=== PATIENT | male | born 1960 | race Two or more races ===

== ENCOUNTER → 2017-01-14 | Outpatient (CLI) | payer BC ==
--- NOTE | 2017-01-14 09:22 | RADRPT ---
PROCEDURE: Left knee x-ray CLINICAL INDICATION: PAIN TECHNIQUE: AP, lateral, oblique and sunrise views of the left knee were obtained. 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 There is no evidence of acute fractures, dislocat ion or patellar subluxation. The bony mineralization is normal. No focal bony blastic or lytic les ions. No evidence of knee joint effusion. Soft tissues are unremarkable. IMPRESSION: 1. Mild degenerate joint disease left knee without evidence of acute fracture dislocation or joint effusion. RPTAT:AAJJ Physician Johanna Date Time Electronically viewed and signed by Physician Johanna on 01/14/2017 09:22 /
== END | disposition home or self-care (01) ==
LOC: HKI 09:15
PROVIDERS: ATTEND Orthopaedic Surgery
DX: M25.562 Pain in left knee (principal)
CPT/HCPCS: G0463